=== PATIENT | female | born 1990 | race African-American/Black ===

== ENCOUNTER 2020-10-01 18:33 | Emergency (ER) | payer OTHER ==
[~2020-10-01] VITALS: Ht 149.9 cm; Wt 52.6 kg
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
[2020-10-01] MEDS ORDERED: IBUP-1955 PO (19:02)
[2020-10-01] MEDS ORDERED: ACETAMINOPHEN ES 500 MG TABLET PO ONE (19:30)
[2020-10-01] MEDS ORDERED: ACETAMINOPHEN ES 500 MG TABLET ONE (19:31)
[2020-10-01 19:48] VITALS: BP 133/85
--- NOTE | 2020-10-01 19:48 | NUR ---
Patient discharged to home in stable condition. Written and verbal after care instructions given. Patient verbalizes understanding of instruction.
== END 2020-10-01 19:48 | disposition home or self-care (01) ==
LOC: ER 18:39
DX: Z04.1 Encounter for examination and observation following transport accident (principal); V49.49XA Driver injured in collision with other motor vehicles in traffic accident, initial encounter; Y93.89 Activity, other specified; Y92.413 State road as the place of occurrence of the external cause; Y99.8 Other external cause status